=== PATIENT | male | born 1935 | race Caucasian/White ===

== ENCOUNTER 2018-10-04 01:10 | Inpatient (IN) | payer MEDICARE, OTHER | END 2018-10-05 11:25 | disposition home or self-care (01) | LOC: ER 01:10 → TELE 05:43 → TELE-CENTR 10:48 | DX: A41.9 Sepsis, unspecified organism (principal); N17.9 Acute kidney failure, unspecified; R55 Syncope and collapse; N18.9 Chronic kidney disease, unspecified; I12.9 Hypertensive chronic kidney disease with stage 1 through stage 4 chronic kidney disease, or unspecified chronic kidney disease ==

== ENCOUNTER 2021-11-01 09:14 | Inpatient (IN) | payer MEDICARE, OTHER ==
[~2021-11-01] VITALS: Ht 182.9 cm; Wt 79.5 kg
[~2021-11-01 09:14] MED LIST: DONE1TAB88 PO; ESCI-34 PO; LOSA-69 PO; MEM5T GT; NIFE-3 PO; PANT40TA2 PO; TAMS0.4C36 PO
[2021-11-01] MEDS ORDERED: SODIUM CHLORIDE 0.9% 500 ML IV ONE (09:30)
[2021-11-01 10:17] LABS: Basophils # (auto) 0.1 10 ^3/uL (0-0.2); Eosinophils # (auto) 0.1 10 ^3/uL (0-0.8); Eosinophils % (auto) 1.2 % (0.0-7.0); Hematocrit 37.6 % (41.0-53.0); Hemoglobin 12.4 g/dL (13.5-17.5); Lymphocytes # (auto) 1.1 10 ^3/uL (0.4-5.4); Lymphocytes % (auto) 14.9 % (10.0-50.0); Mean Corpuscular Hemoglobin 29.2 pg (28.0-32.0); Mean Corpuscular Volume 88.3 fL (80.0-100.0); Monocytes # (auto) 0.5 10 ^3/uL (0-1.3); Monocytes % (auto) 6.6 % (0.0-12.0); Neutrophils # (auto) 5.7 10 ^3/uL (1.6-8.6); Neutrophils % (auto) 76.3 % (37.0-80.0); Red Blood Cells 4.26 10^6/uL (4.5-5.90); Red Cell Distribution Width 15.6 % (11.8-14.3); White Blood Cell 7.5 10^3/uL (4.4-10.8)
[2021-11-01 10:33] LABS: Albumin 3.2 g/dL (3.4-5.0); Calcium 8.3 mg/dL (8.5-10.1); Magnesium 2.2 mg/dL (1.6-2.6); Potassium 3.3 mmol/L (3.5-5.1)
[2021-11-01 10:37] LABS: BUN/Creatinine Ratio 9.6; Bilirubin, Total 0.4 mg/dL (0.2-1.0); Total Protein 7.1 g/dL (6.4-8.2)
[2021-11-01 11:48] LABS: Urine Bacteria NONE SEEN /hpf (None Seen); Urine Blood 2+ /uL (Negative); Urine Specific Gravity 1.016 (1.001-1.035); Urine WBC 20 /hpf (0 - 3)
[2021-11-01] MEDS ORDERED: cloNIDine HCL 0.1 MG TAB PO ONE (12:15)
[2021-11-01] MEDS ORDERED: cefTRIAXone 1GM/50ML D5W 50 ML IV ONE (12:15)
[2021-11-01] MEDS ORDERED: ONDANSETRON HCL 4 MG/2 ML VIAL IV PRN (13:30)
[2021-11-01] MEDS ORDERED: ACETAMINOPHEN 325 MG TAB PO PRN ×2 (13:30)
[2021-11-02 06:32] LABS: Basophils # (auto) 0.1 10 ^3/uL (0-0.2); Basophils % (auto) 0.6 % (0.0-2.0); Eosinophils # (auto) 0.2 10 ^3/uL (0-0.8); Eosinophils % (auto) 2.4 % (0.0-7.0); Hemoglobin 12.1 g/dL (13.5-17.5); Lymphocytes # (auto) 1.7 10 ^3/uL (0.4-5.4); Lymphocytes % (auto) 21.4 % (10.0-50.0); Mean Corpuscular Hemoglobin 29.2 pg (28.0-32.0); Mean Corpuscular Hgb Conc. 33.6 g/dL (32.0-36.0); Mean Corpuscular Volume 86.8 fL (80.0-100.0); Monocytes # (auto) 0.7 10 ^3/uL (0-1.3); Monocytes % (auto) 8.3 % (0.0-12.0); Neutrophils # (auto) 5.5 10 ^3/uL (1.6-8.6); Neutrophils % (auto) 67.3 % (37.0-80.0); Nucleated Red Blood Cells % 0.1 %; Red Blood Cells 4.15 10^6/uL (4.5-5.90); Red Cell Distribution Width 15.4 % (11.8-14.3); White Blood Cell 8.1 10^3/uL (4.4-10.8)
[2021-11-02 06:49] LABS: Calcium 8.4 mg/dL (8.5-10.1); Potassium 3.5 mmol/L (3.5-5.1)
[2021-11-02 06:51] LABS: BUN/Creatinine Ratio 10.6
[2021-11-02 06:54] LABS: Bilirubin, Total 0.5 mg/dL (0.2-1.0); Total Protein 6.6 g/dL (6.4-8.2)
[2021-11-02] MEDS: NIFEdipine ER 30 MG TAB PO SCH (09:54)
[2021-11-02] MEDS: ENOXAPARIN SOD 30 MG/0.3 ML SYRINGE SC SCH (09:55)
[2021-11-02] MEDS ORDERED: cefTRIAXone 1GM/50ML D5W 50 ML IV ONE (12:00)
[2021-11-02] MEDS ORDERED: ASPirin 81 mg TAB PO ONE (12:00)
[2021-11-02] MEDS ORDERED: PANTOPRAZOLE 40 MG TAB PO ONE (12:30)
[2021-11-02] MEDS ORDERED: MEMANTINE HCL 5 MG TAB PO ONE (12:30)
[2021-11-02] MEDS ORDERED: LOSARTAN POTASSIUM 50 MG TAB PO ONE (12:30)
[2021-11-02 13:00] VITALS: BP 184/84
[2021-11-02 13:22] LABS: Magnesium 2.1 mg/dL (1.6-2.6); Phosphorus 2.6 mg/dL (2.5-4.90); Uric Acid 6.2 mg/dL (3.5-7.2)
[2021-11-02] MEDS ORDERED: cloNIDine HCL 0.1 MG TAB PO PRN (16:30)
[2021-11-02 16:57] VITALS: BP 150/86
[2021-11-02] MEDS: TAMSULOSIN HYDROCHLORIDE 0.4 MG CAP PO SCH (18:55)
[2021-11-02 20:00] VITALS: BP 123/70
[2021-11-02 21:33] VITALS: BP 123/70
[2021-11-02] MEDS: DONEPEZIL HYDROCHLORIDE 5 MG TAB PO SCH (21:51)
[2021-11-03 04:57] VITALS: BP 124/64
[2021-11-03 09:00] VITALS: BP 142/74
[2021-11-03] MEDS: cefTRIAXone 1GM/50ML D5W 50 ML IV SCH (10:20)
[2021-11-03] MEDS: ASPirin 81 mg TAB PO SCH (10:20)
[2021-11-03] MEDS: PANTOPRAZOLE 40 MG TAB PO SCH (10:22)
[2021-11-03] MEDS: ENOXAPARIN SOD 30 MG/0.3 ML SYRINGE SC SCH (10:22)
[2021-11-03] MEDS: MEMANTINE HCL 5 MG TAB PO SCH (10:22)
[2021-11-03] MEDS: NIFEdipine ER 30 MG TAB PO SCH (10:22)
[2021-11-03] MEDS: LOSARTAN POTASSIUM 50 MG TAB PO SCH (10:24)
[2021-11-03 11:06] LABS: Hepatitis C Antibody Negative (Negative)
[2021-11-03 13:00] VITALS: BP 131/72
[2021-11-03] MEDS ORDERED: hydrALAZINE HCL 20 MG/ML VL IV PRN (15:30)
[2021-11-03 16:54] VITALS: BP 135/75
[2021-11-03] MEDS: TAMSULOSIN HYDROCHLORIDE 0.4 MG CAP PO SCH (21:35)
[2021-11-03] MEDS: DONEPEZIL HYDROCHLORIDE 5 MG TAB PO SCH (21:35)
[2021-11-03 21:46] VITALS: BP 125/80
[2021-11-04 05:21] VITALS: BP 151/72
[2021-11-04 07:09] LABS: BUN/Creatinine Ratio 11.1; Calcium 7.8 mg/dL (8.5-10.1)
[2021-11-04 08:09] LABS: Potassium 2.9 mmol/L (3.5-5.1)
[2021-11-04] MEDS: cefTRIAXone 1GM/50ML D5W 50 ML IV SCH (08:31)
[2021-11-04 09:00] VITALS: BP 150/77
[2021-11-04] MEDS ORDERED: POTASSIUM CHL 20 Meq TABLET PO ONE ×2 (09:00→09:30)
[2021-11-04] MEDS ORDERED: POTASSIUM EFFERVESENT TAB 25 MEQ GT ONE (09:45)
[2021-11-04] MEDS: ASPirin 81 mg TAB PO SCH (10:04)
[2021-11-04] MEDS: MEMANTINE HCL 5 MG TAB PO SCH (10:09)
[2021-11-04] MEDS: NIFEdipine ER 30 MG TAB PO SCH (10:09)
[2021-11-04] MEDS: PANTOPRAZOLE 40 MG TAB PO SCH (10:10)
[2021-11-04] MEDS: LOSARTAN POTASSIUM 50 MG TAB PO SCH (10:10)
[2021-11-04] MEDS: ENOXAPARIN SOD 30 MG/0.3 ML SYRINGE SC SCH (10:19)
[2021-11-04 13:00] VITALS: BP 146/73
[2021-11-04 17:00] VITALS: BP 128/71
[2021-11-04] MEDS: TAMSULOSIN HYDROCHLORIDE 0.4 MG CAP PO SCH (18:00)
[2021-11-04] MEDS: DONEPEZIL HYDROCHLORIDE 5 MG TAB PO SCH (20:56)
[2021-11-04 22:00] VITALS: BP 119/59
[2021-11-05 04:59] VITALS: BP 136/64
[2021-11-05 09:00] VITALS: BP 121/73
[2021-11-05] MEDS: cefTRIAXone 1GM/50ML D5W 50 ML IV SCH (09:00)
[2021-11-05] MEDS: PANTOPRAZOLE 40 MG TAB PO SCH (09:14)
[2021-11-05] MEDS: ASPirin 81 mg TAB PO SCH (09:15)
[2021-11-05] MEDS: NIFEdipine ER 30 MG TAB PO SCH (09:15)
[2021-11-05] MEDS: LOSARTAN POTASSIUM 50 MG TAB PO SCH (09:16)
[2021-11-05] MEDS: MEMANTINE HCL 5 MG TAB PO SCH (09:16)
[2021-11-05] MEDS: ENOXAPARIN SOD 30 MG/0.3 ML SYRINGE SC SCH (09:16)
[2021-11-05 10:51] LABS: Calcium 7.8 mg/dL (8.5-10.1); Potassium 3.7 mmol/L (3.5-5.1)
[2021-11-05 10:53] LABS: BUN/Creatinine Ratio 12.4
[2021-11-05 12:45] VITALS: BP 107/58
[2021-11-05 17:00] VITALS: BP 117/60
[2021-11-05] MEDS: TAMSULOSIN HYDROCHLORIDE 0.4 MG CAP PO SCH (17:39)
[2021-11-05] MEDS: DONEPEZIL HYDROCHLORIDE 5 MG TAB PO SCH (21:19)
[2021-11-05 22:12] VITALS: BP 112/55
[2021-11-06 08:05] LABS: BUN/Creatinine Ratio 11.3; Calcium 7.8 mg/dL (8.5-10.1); Potassium 3.9 mmol/L (3.5-5.1)
[2021-11-06] MEDS: cefTRIAXone 1GM/50ML D5W 50 ML IV SCH (08:56)
[2021-11-06 09:00] VITALS: BP 118/65
[2021-11-06] MEDS: PANTOPRAZOLE 40 MG TAB PO SCH (09:01)
[2021-11-06] MEDS: ASPirin 81 mg TAB PO SCH (09:01)
[2021-11-06] MEDS: NIFEdipine ER 30 MG TAB PO SCH (09:01)
[2021-11-06] MEDS: LOSARTAN POTASSIUM 50 MG TAB PO SCH (09:02)
[2021-11-06] MEDS: MEMANTINE HCL 5 MG TAB PO SCH (09:02)
[2021-11-06] MEDS: ENOXAPARIN SOD 30 MG/0.3 ML SYRINGE SC SCH (09:05)
[2021-11-06 12:56] VITALS: BP 115/69
[2021-11-06 16:43] VITALS: BP 119/70
[2021-11-06] MEDS: TAMSULOSIN HYDROCHLORIDE 0.4 MG CAP PO SCH (17:47)
[2021-11-06] MEDS: DONEPEZIL HYDROCHLORIDE 5 MG TAB PO SCH (21:38)
[2021-11-06 22:00] VITALS: BP 122/61
[2021-11-07 05:00] VITALS: BP 122/70
[2021-11-07 06:24] LABS: Basophils # (auto) 0 10 ^3/uL (0-0.2); Basophils % (auto) 0.5 % (0.0-2.0); Eosinophils # (auto) 0.1 10 ^3/uL (0-0.8); Eosinophils % (auto) 1.9 % (0.0-7.0); Hematocrit 35.3 % (41.0-53.0); Lymphocytes # (auto) 1.4 10 ^3/uL (0.4-5.4); Lymphocytes % (auto) 18.4 % (10.0-50.0); Mean Corpuscular Hemoglobin 29.6 pg (28.0-32.0); Monocytes # (auto) 0.7 10 ^3/uL (0-1.3); Monocytes % (auto) 9.4 % (0.0-12.0); Neutrophils # (auto) 5.5 10 ^3/uL (1.6-8.6); Neutrophils % (auto) 69.8 % (37.0-80.0); Red Blood Cells 4.06 10^6/uL (4.5-5.90); White Blood Cell 7.8 10^3/uL (4.4-10.8)
[2021-11-07 09:00] VITALS: BP 113/71
[2021-11-07] MEDS: cefTRIAXone 1GM/50ML D5W 50 ML IV SCH (09:17)
[2021-11-07] MEDS: ASPirin 81 mg TAB PO SCH (09:19)
[2021-11-07] MEDS: MEMANTINE HCL 5 MG TAB PO SCH (09:19)
[2021-11-07] MEDS: ENOXAPARIN SOD 30 MG/0.3 ML SYRINGE SC SCH (09:20)
[2021-11-07] MEDS: LOSARTAN POTASSIUM 50 MG TAB PO SCH (09:20)
[2021-11-07] MEDS: PANTOPRAZOLE 40 MG TAB PO SCH (09:28)
[2021-11-07] MEDS: NIFEdipine ER 30 MG TAB PO SCH (09:28)
[2021-11-07 12:38] VITALS: BP 130/85
[2021-11-07 15:00] VITALS: BP 113/65
[2021-11-07] MEDS: TAMSULOSIN HYDROCHLORIDE 0.4 MG CAP PO SCH (18:00)
[2021-11-07 18:04] VITALS: BP 141/64
== END 2021-11-07 18:00 | DRG 871 ==
LOC: ER 09:14 → EDBD 09:14 → TELE 13:27 → TELE-WESTW 11-02 08:23
PROVIDERS: ADMIT Internal Medicine; ATTEND Family Medicine
DX: A41.9 Sepsis, unspecified organism (principal); G92.8 Other toxic encephalopathy; I63.9 Cerebral infarction, unspecified; N17.0 Acute kidney failure with tubular necrosis; E44.0 Moderate protein-calorie malnutrition; L02.91 Cutaneous abscess, unspecified; N18.4 Chronic kidney disease, stage 4 (severe); I16.1 Hypertensive emergency; I13.0 Hypertensive heart and chronic kidney disease with heart failure and stage 1 through stage 4 chronic kidney disease, or unspecified chronic kidney disease; N39.0 Urinary tract infection, site not specified; E11.40 Type 2 diabetes mellitus with diabetic neuropathy, unspecified; E11.21 Type 2 diabetes mellitus with diabetic nephropathy; F03.90 Unspecified dementia, unspecified severity, without behavioral disturbance, psychotic disturbance, mood disturbance, and anxiety; N18.9 Chronic kidney disease, unspecified; F17.210 Nicotine dependence, cigarettes, uncomplicated; S51.012A Laceration without foreign body of left elbow, initial encounter; E66.9 Obesity, unspecified; D63.1 Anemia in chronic kidney disease; K21.9 Gastro-esophageal reflux disease without esophagitis; R00.1 Bradycardia, unspecified; Z20.822 Contact with and (suspected) exposure to COVID-19; W01.0XXA Fall on same level from slipping, tripping and stumbling without subsequent striking against object, initial encounter; I50.9 Heart failure, unspecified; E11.22 Type 2 diabetes mellitus with diabetic chronic kidney disease; E87.6 Hypokalemia; R80.9 Proteinuria, unspecified; Z79.899 Other long term (current) drug therapy; Y93.89 Activity, other specified; Y92.89 Other specified places as the place of occurrence of the external cause; Y99.8 Other external cause status; N40.1 Benign prostatic hyperplasia with lower urinary tract symptoms
CPT/HCPCS: 36415; 70450; 70551; 71045; 74176; 76775; 80048; 80053; 81001; 82306; 83036; 83735; 83970; 84100; 84550; 85025; 86803; 87040; 87077; 87086; 87186; 87340; 92610; 93005; 93306; 93886; 96361; 96365; 97110; 97116; 97163; 97530; G0378; J0696